=== PATIENT | male | born 1975 | race Caucasian/White ===

== ENCOUNTER 2019-06-20 11:05 | Emergency (ER) | payer OTHER ==
[2019-06-20] MEDS ORDERED: Ketorolac 60 MG/2 ML SDV IM ONE (12:16)
--- NOTE | 2019-06-20 12:25 | EDM.PDOC ---
ED HPI GENERAL MEDICAL PROBLEM - General Chief Complaint: Headache Stated Complaint: NOT FEELING WELL Time Seen by Provider: 06/20/19 11:09 Source of Information: Reports: Patient History Limitations: Reports: No Limitations - History of Present Illness INITIAL COMMENTS - FREE TEXT/NARRATIVE: History of present illness: []Patient has had 6 months of intermittent headaches, feeling tired with intermittent blood in his stools after a bowel movement,. Patient is requesting a work note. Patient denies any abdominal pain at this time, he states he has a headache. [place] of [place] but [place] he has not followed up with his primary care. Review of systems: As per history of present illness and below otherwise all systems reviewed and negative. Past medical history: As per history of present illness and as reviewed below otherwise noncontributory. Surgical history: As per history of present illness and as reviewed below otherwise noncontributory. Social history: No reported history of drug or alcohol abuse. Family history: As per history of present illness and as reviewed below otherwise noncontributory. Physical exam: General: Well developed, well nourished in NAD HEENT: Atraumatic, normocephalic, pupils reactive, negative for conjunctival pallor or scleral icterus, mucous membranes moist, throat clear, neck supple, mild tenderness over left maxillary sinus to palpation no nuchal rigidity nontender, trachea midline. Clear Lungs: Clear to auscultation, breath sounds equal bilaterally, chest nontender. Heart: S1S2, regular, negative for clicks, rubs, or JVD. Abdomen: NABS, Soft, nondistended, nontender, no rebound or guarding. Negative for masses or hepatosplenomegaly. Negative for costovertebral tenderness. Pelvis: Stable nontender. Genitourinary: Deferred. Rectal: Deferred. Extremities: Atraumatic, negative for cords or calf pain. Neurovascular unremarkable. Neuro: Awake, alert, oriented. Cranial nerves II through XII unremarkable. Cerebellum unremarkable. Motor and sensory unremarkable throughout. Exam nonfocal. Skin:warm and dry Diagnostics: None Therapeutics: Toradol IM, clonidine ED Course: Stable Impression: Uncontrolled hypertension, Prescriptions: None Plan: Take meds as directed, follow up with your primary care physician, return to ER if symptoms worsen or change. Definitive disposition and diagnosis as appropriate pending reevaluation and review of above. headache Pain Score (Numeric/FACES): 4 - Related Data Allergies Allergy/AdvReac Type Severity Reaction Status Date / Time No Known Allergies Allergy Verified 06/20/19 11:52 Home Meds: Home Meds . [No Known Home Meds] 06/20/19 [History] Past Medical History - Past Health History Medical/Surgical History: Denies Medical/Surgical History - Infectious Disease History Infectious Disease History: Reports: Chicken Pox Social & Family History - Family History Family Medical History: Noncontributory - Tobacco Use Smoking Status *Q: Never Smoker - Recreational Drug Use Recreational Drug Use: No ED ROS GENERAL - Review of Systems Review Of Systems: See Below - Physical Exam Exam: See Below Course - Vital Signs Last Recorded V/S: Last Vital Signs Temp 97.0 F 06/20/19 13:27 Pulse 60 06/20/19 13:27 Resp 16 06/20/19 13:27 BP 145/93 H 06/20/19 13:27 Pulse Ox 98 06/20/19 13:27 - Orders/Labs/Meds Meds: Medications Discontinued Medications Generic Name Dose Route Start Last Admin Trade Name Thomas PRN Reason Stop Dose Admin Clonidine HCl 0.2 mg 06/20/19 12:38 06/20/19 12:54 Catapres PO 06/20/19 12:39 0.2 mg ONETIME ONE Administration Ketorolac Tromethamine 60 mg 06/20/19 12:16 06/20/19 12:55 Toradol IM 06/20/19 12:17 60 mg ONETIME ONE Administration Departure - Departure Time of Disposition: 13:35 Disposition: Home, Self-Care 01 Condition: Good Clinical Impression: Uncontrolled hypertension - Discharge Information *PRESCRIPTION DRUG MONITORING PROGRAM REVIEWED*: Not Applicable *COPY OF PRESCRIPTION DRUG MONITORING REPORT IN PATIENT EARLENE: Not Applicable Instructions: Hypertension, [id number] Forms: ED Department Discharge Additional Instructions: The following information is given to patients seen in the emergency department who are being discharged to home. This information is to outline your options for follow-up care. We provide all patients seen in our emergency department with a follow-up referral. The need for follow-up, as well as the timing and circumstances, are variable depending upon the specifics of your emergency department visit. If you don't have a primary care physician on staff, we will provide you with a referral. We always advise you to contact your personal physician following an emergency department visit to inform them of the circumstance of the visit and for follow-up with them and/or the need for any referrals to a consulting specialist. The emergency department will also refer you to a specialist when appropriate. This referral assures that you have the opportunity for follow-up care with a specialist. All of these measure are taken in an effort to provide you with optimal care, which includes your follow-up. Under all circumstances we always encourage you to contact your private physician who remains a resource for coordinating your care. When calling for follow-up care, please make the office aware that this follow-up is from your recent emergency room visit. If for any reason you are refused follow-up, please contact the [facility] Emergency Department at and asked to speak to the emergency department charge nurse. Take meds as directed, follow up with your primary care physician, return to ER if symptoms worsen or change. [facility] [address] [place] [id number]
[2019-06-20] MEDS ORDERED: cloNIDine 0.1 MG Tab PO ONE (12:38)
== END 2019-06-20 13:41 | disposition home or self-care (01) ==
LOC: MW.ED 11:05
DX: I10 Essential (primary) hypertension (principal)
CPT/HCPCS: 96372; 99283; A9270; J1885; 99282

== ENCOUNTER 2023-02-11 23:07 | Emergency (ER) | payer OTHER ==
[2023-02-11] MEDS ORDERED: Sodium Chloride 0.9% 10 ML Syringe FLUSH PRN (23:17)
[2023-02-11] MEDS ORDERED: Sodium Chloride 0.9% 2.5 ML Syringe FLUSH PRN (23:17)
[2023-02-11] MEDS ORDERED: Sodium Chloride 0.9% 1,000 ML IV ONE (23:22)
[2023-02-11] MEDS ORDERED: Dicyclomine 10 MG Cap PO ONE (23:22)
[2023-02-11] MEDS ORDERED: HYDROmorphone 1 MG/ML Syringe IVPUSH ONE (23:22)
[2023-02-11] MEDS ORDERED: Ondansetron 4 MG/2 ML SDV IVPUSH ONE (23:25)
[2023-02-11 23:32] LABS: BASOPHILS PERCENT AUTO 0.5 % (0.0-1.5); EOSINOPHILS ABSOLUTE AUTO 0.3 K/uL (0.0-0.7); EOSINOPHILS PERCENT AUTO 2.9 % (0.0-7.0); HEMATOCRIT 42.6 % (38.0-50.0); HEMOGLOBIN 15.3 g/dL (13.0-17.0); LYMPHOCYTES PERCENT AUTO 22.8 % (16.0-40.0); MEAN CORPUSCULAR HGB CONC 35.9 g/dL (31.0-37.0); MEAN CORPUSCULAR VOLUME 89.1 fL (80.0-98.0); MONOCYTES ABSOLUTE AUTO 0.5 K/uL (0.0-0.8); MONOCYTES PERCENT AUTO 5.3 % (0.0-15.0); NEUTROPHILS PERCENT AUTO 68.5 % (48.0-80.0); NRBC ABSOLUTE 0 K/uL; PLATELET COUNT,PLT 240 K/uL (150-400); RED BLOOD CELL COUNT 4.78 M/uL (4.50-5.90); WHITE BLOOD CELL COUNT,WBC 8.74 K/uL (4.0-11.0)
[2023-02-11 23:48] LABS: APPEARANCE,URINE CLEAR; BILIRUBIN,URINE NEGATIVE (NEGATIVE); COLOR,URINE YELLOW; GLUCOSE,URINE NEGATIVE (NEGATIVE); KETONES,URINE NEGATIVE (NEGATIVE); LEUKOCYTE ESTERASE,URINE NEGATIVE (NEGATIVE); NITRITE,URINE NEGATIVE (NEGATIVE); OCCULT BLOOD,URINE NEGATIVE (NEGATIVE); PROTEIN,URINE TRACE mg/dL (NEGATIVE); UROBILINOGEN,URINE 0.2 EU/dL (<2.0)
[2023-02-11 23:58] LABS: ALBUMIN 3.8 g/dL (3.4-5.0); BILIRUBIN TOTAL 0.4 mg/dL (0.2-1.0); CARBON DIOXIDE,CO2 26.6 mmol/L (21.0-32.0); EST CRCL DRUG DOSING (CG) 92.26 mL/min; POTASSIUM,K 3.9 mmol/L (3.5-5.1); PROTEIN TOTAL,TP 7.6 g/dL (6.4-8.2)
[2023-02-12] MEDS ORDERED: Iopamidol 755 MG/ML 500 ML Multipack Bottle IVPUSH STA (00:36)
[2023-02-12 00:37] LABS: BACTERIA,URINE RARE (NEGATIVE); EPITHELIAL CELLS,URINE RARE (NONE-FEW); MUCUS,URINE OCCASIONAL (NONE-MOD); RBC,URINE 0-1 (0-2/HPF); WBC,URINE 0-1 (0-5/HPF)
== END 2023-02-12 02:23 | disposition home or self-care (01) ==
LOC: MW.ED 23:07
DX: R10.13 Epigastric pain (principal); K21.9 Gastro-esophageal reflux disease without esophagitis; I10 Essential (primary) hypertension; Z79.899 Other long term (current) drug therapy
CPT/HCPCS: 36415; 71275; 74174; 76705; 80053; 81001; 83690; 84484; 85025; 93005; 96361; 96374; 96375; 99285; A9270; J1170; J2405; J3490; J7030; Q9967; 93010; 99284